=== PATIENT | male | born 1985 | race Caucasian/White ===

== ENCOUNTER 2021-05-03 19:29 | Emergency (ER) | payer OTHER ==
[2021-05-03 20:04] VITALS: BP 127/60; PULSE 89; TEMP 98.9; BMI 25.4
== END 2021-05-03 22:35 | disposition home or self-care (01) ==
LOC: JER 19:29
DX: U07.1 COVID-19 (principal)
CPT/HCPCS: 87804; 99283-25; C9803; U0003; U0005

== ENCOUNTER 2023-08-20 17:04 | Emergency (ER) | payer SELFPAY ==
[2023-08-20 17:13] VITALS: BP 119/69; PULSE 72; RESP 18; TEMP 97.9; BMI 24.2
== END 2023-08-20 18:28 | disposition home or self-care (01) ==
LOC: JER 17:04 → JERFT 17:04
DX: R51.9 Headache, unspecified (principal); R09.81 Nasal congestion; R05.9 Cough, unspecified; R52 Pain, unspecified; R68.83 Chills (without fever); J06.9 Acute upper respiratory infection, unspecified
CPT/HCPCS: 99283-25